=== PATIENT | female | born 1960 | race Caucasian/White ===

== ENCOUNTER 2025-01-18 16:13 | Emergency (ER) | payer OTHER, SELFPAY ==
[2025-01-18] VITALS (10 sets, daily range): BP systolic 135–193; BP diastolic 75–96; PULSE 52–68; RESP 18–19; TEMP 37–37.1; O2SAT 86–100; BMI 24.4
--- NOTE | 2025-01-18 16:29 | EKG_ITS ---
[address] [address] [address] [address] Test Date: 2025-01-18 Pat Name: Katlyn Winston Department: [facility] Room: Gender: Female Clark Driver: RACHELE : 1960 Requested By: Order Number: [id number] Reading MD: Cristo Schumacher MD Measurements Intervals [place] Rate: 60 P: 52 [place]: 172 QRS: 31 QRSD: 82 T: 57 QT: 404 QTc: 404 Interpretive Statements Normal sinus rhythm Nonspecific ST abnormality Electronically Signed On 01-19-2025 7:33:15 PDT by Cristo Schumacher MD
[2025-01-18 17:11] LABS: Add Manual Diff / Slide Review NO; Hematocrit 36.6 % (36-46); Hemoglobin 12.9 g/dL (12.0-16.0); Lymphocytes Absolute Auto 1200 /uL (1100-4500); Mean Corpuscular HGB Conc 35.3 % (30-36); Mean Corpuscular Hemoglobin 33.5 PG (26-34); Mean Corpuscular Volume 94.7 fL (80-100); Platelet Count 178 X10^3/uL (150-400)
[2025-01-18 17:21] LABS: Alanine Aminotransferase 23 IU/L (<35); Albumin 4.2 g/dL (3.5-5.0); Albumin Globulin Ratio 1.7 (1.0-2.8); Alkaline Phosphatase 53 U/L (38-126); Blood Urea Nitrogen 11 mg/dL (7-17); Calcium 9.1 mg/dL (8.4-10.2); Carbon Dioxide 23 mmol/L (22-32); Chloride 100 mmol/L (98-107); Estimated Glomerular Filt Rate > 60 mL/min (>60); Globulin 2.5 g/dL (1.7-4.1); Glucose 92 mg/dL (70-99); HEMOLYSIS < 15 (0-50); Lipase 47 U/L (23-300); Potassium 3.8 mmol/L (3.4-5.1); Sodium 131 mmol/L (137-145); Total Protein 6.7 g/dL (6.3-8.2)
[2025-01-18 17:41] LABS: Culture Indicated Urine Cult Not Indicated
--- NOTE | 2025-01-18 18:45 | PC.NURSE ---
Pt requesting pain medication. Dr Rock notified.
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
[2025-01-18] MEDS: KETOROLAC 30 MG/ML VIAL 15 MG IV (20:14)
[2025-01-18] MEDS: ONDANSETRON 4 MG ODT PREPACK 1 BOTTLE MISC (20:41)
== END 2025-01-18 20:49 | disposition home or self-care (01) ==
PROVIDERS: Family Medicine; Emergency Provider Emergency Medicine
DX: S39.012A Strain of muscle, fascia and tendon of lower back, initial encounter (principal); X50.9XXA Other and unspecified overexertion or strenuous movements or postures, initial encounter; Y92.814 Boat as the place of occurrence of the external cause; K86.89 Other specified diseases of pancreas; K83.8 Other specified diseases of biliary tract
CPT/HCPCS: 36415; 74177; 80053; 81003; 81015; 83690; 85025; 87086; 93005; 96374; 96375; 99284; J1171; J1885; Q9967